=== PATIENT | male | born 1990 | race Caucasian/White ===

== ENCOUNTER 2017-03-22 17:28 | Emergency (ER) | payer BC ==
[~2017-03-22] VITALS: Ht 185.4 cm; Wt 72.6 kg
[~2017-03-22 17:28] MED LIST: atarax PO
--- NOTE | 2017-03-22 20:26 | REP ---
Acute abdominal series series including PA chest and supine upright abdomen: PA chest: Comparison is 08/30/2016. The lung hayes are clear. Cardiac size normal. The lissette, mediastinum, bony thorax are unremarkable. There is no free subdiaphragmatic air. No interval change. Impression: Negative PA chest. Abdomen, supine upright views: There are no comparisons. The bowel gas pattern is normal. No calcifications. Skeletal soft tissue structures otherwise are unremarkable. Impression: Negative supine upright abdomen. Signed by Gus Ridley MD 03/22/2017 08:18 P
[2017-03-22 20:34] LABS: BASO % 0.5 % (0.0-1.0); EOS # 0.1 K/mm3 (0.0-0.50); EOS % 1.1 % (0.0-3.0); LARGE UNSTAINED CELL # 0.2 K/mm3 (0.0-0.4); LARGE UNSTAINED CELL % 1.7 % (0.0-4.0); LYMPH # 2.2 K/mm3 (1.5-6.5); LYMPH % 25.6 % (24.0-44.0); MEAN CORPUSCULAR HEMOGLOBIN 33.3 pg (27.0-33.0); MEAN CORPUSCULAR HGB CONC 33.9 g/dl (32.0-36.5); MEAN CORPUSCULAR VOLUME 98.3 fl (80.0-96.0); MONO # 0.4 K/mm3 (0.0-0.8); MONO % 4.7 % (0.0-5.0); NEUTROPHILS # 5.8 K/mm3 (1.8-7.7); NEUTROPHILS % 66.4 % (36.0-66.0); PLATELET COUNT, AUTOMATED 307 k/mm3 (150-450); RED CELL DISTRIBUTION WIDTH 12.6 % (11.5-14.5); WHITE BLOOD COUNT 8.7 K/mm3 (4.0-10.0)
[2017-03-22 20:53] LABS: ALBUMIN/GLOBULIN RATIO 1.38 (1.00-1.93); ALKALINE PHOSPHATASE 98 U/L (45-117); ALT/SGPT 17 U/L (12-78); ANION GAP 7 MEQ/L (8-16); AST/SGOT 10 U/L (15-37); BILIRUBIN,DIRECT 0.2 MG/DL (0.0-0.2); BILIRUBIN,TOTAL 0.5 MG/DL (0.2-1.0); BLOOD UREA NITROGEN 12 MG/DL (7-18); CALCIUM LEVEL 9.1 MG/DL (8.5-10.1); CARBON DIOXIDE LEVEL 29 MEQ/L (21-32); CHLORIDE LEVEL 105 MEQ/L (98-107); CREATININE FOR GFR 1.21 MG/DL (0.70-1.30); GLOMERULAR FILTRATION RATE > 60.0 (>60); GLUCOSE, FASTING 87 MG/DL (70-105); POTASSIUM SERUM 4.4 MEQ/L (3.5-5.1); SODIUM LEVEL 141 MEQ/L (136-145); TOTAL PROTEIN 6.9 GM/DL (6.4-8.2)
[2017-03-22 21:40] VITALS: BP 98/52
--- NOTE | 2017-03-23 08:57 | ECGEPIP ---
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
== END 2017-03-22 21:44 | disposition home or self-care (01) ==
LOC: M ED 18:46
DX: R00.2 Palpitations (principal); F17.200 Nicotine dependence, unspecified, uncomplicated; F11.21 Opioid dependence, in remission

== ENCOUNTER 2018-07-16 17:30 | Emergency (ER) | payer BC | END 2018-07-16 18:05 | disposition home or self-care (01) | LOC: M ED 17:30 | DX: Z53.21 Procedure and treatment not carried out due to patient leaving prior to being seen by health care provider (principal) | CPT/HCPCS: 99281 ==

== ENCOUNTER 2019-01-12 22:48 | Emergency (ER) | payer BC, SELFPAY ==
[~2019-01-12] VITALS: Ht 185.4 cm; Wt 75.0 kg
[2019-01-13 01:03] LABS: ABG HCO3 22.1 MEQ/L (22.0-26.0); ABG O2 SATURATION 98.7 % (95.0-99.0); ABG PARTIAL PRESSURE CO2 36.2 mmHg (35.0-45.0); ABG PARTIAL PRESSURE O2 140.6 mmHg (75.0-100.0); ABG STANDARD HCO3 22.9 MEQ/L (22.0-26.0); ABG TOTAL CO2 23.2 MEQ/L (22.0-29.0); ABG pH (ARTERIAL) 7.404 UNITS (7.350-7.450)
[2019-01-13 01:10] VITALS: BP 106/79
[2019-01-13] MEDS ORDERED: KETOROLAC 60 MG/2 ML VIAL (J1885) IM ONE (01:15)
--- NOTE | 2019-01-13 07:30 | ECGEPIP ---
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
--- NOTE | 2019-01-13 11:00 | REP ---
CHEST, TWO VIEWS: There is no evidence of acute infiltrate. No pleural effusion is seen. The heart is normal in size. The mediastinal silhouette is unremarkable. The visualized osseous structures are intact. IMPRESSION: No acute pulmonary disease. Electronically Signed by Gus Archer MD 01/13/2019 05:43 P
== END 2019-01-13 01:24 | disposition home or self-care (01) ==
LOC: M ED 22:48
DX: R07.89 Other chest pain (principal); R00.2 Palpitations; F10.10 Alcohol abuse, uncomplicated; F41.9 Anxiety disorder, unspecified; Z88.0 Allergy status to penicillin; F17.210 Nicotine dependence, cigarettes, uncomplicated

== ENCOUNTER 2023-01-14 12:51 | Emergency (ER) | payer OTHER, SELFPAY ==
[~2023-01-14] VITALS: Ht 185.4 cm; Wt 73.0 kg
[2023-01-14] MEDS ORDERED: DOXY-443 PO (13:59)
[2023-01-14] MEDS ORDERED: PROA1AER2 INH (13:59)
[2023-01-14] MEDS ORDERED: MUCI1TAB16 PO (14:01)
[2023-01-14 14:23] VITALS: BP 106/54
== END 2023-01-14 14:26 | disposition home or self-care (01) ==
LOC: M ED 12:51
DX: J01.00 Acute maxillary sinusitis, unspecified (principal); R06.02 Shortness of breath; F17.200 Nicotine dependence, unspecified, uncomplicated; Z88.0 Allergy status to penicillin; Z79.52 Long term (current) use of systemic steroids; Z79.899 Other long term (current) drug therapy

== ENCOUNTER 2023-02-19 18:41 | Emergency (ER) | payer OTHER ==
[~2023-02-19] VITALS: Ht 188 cm; Wt 70.2 kg
[~2023-02-19 18:41] MED LIST changes: +DOXY-443 PO; +MUCI1TAB16 PO; +PROA1AER2 INH
[2023-02-19 19:16] LABS: APPEARANCE, URINE CLEAR (CLEAR); BACTERIA, URINE AUTO NEGATIVE (NEGATIVE); BILIRUBIN, URINE AUTO NEGATIVE (NEGATIVE); BLOOD, URINE BLOOD NEGATIVE (NEGATIVE); COLOR, URINE YELLOW (YELLOW); GLUCOSE, URINE (UA) AUTO NEGATIVE (NEGATIVE); KETONE, URINE AUTO NEGATIVE (NEGATIVE); LEUKOCYTE ESTERASE, URINE AUTO NEGATIVE (NEGATIVE); NITRITE, URINE AUTO NEGATIVE (NEGATIVE); PROTEIN, URINE AUTO NEGATIVE (NEGATIVE); RBC, URINE AUTO 0 /HPF (0-3); SPECIFIC GRAVITY URINE AUTO 1.009 (1.002-1.035); SQUAMOUS EPITHELIAL CELL UR AU 0 /HPF (0-6); UROBILINOGEN, URINE AUTO 0.2 mg/dL (0.0-2.0); WBC, URINE AUTO 0 /HPF (0-3)
[2023-02-19 20:34] LABS: GC DNA AMPLIFICATION NEGATIVE (NEGATIVE)
[2023-02-19 20:57] VITALS: BP 128/60
[2023-02-19] MEDS ORDERED: cefTRIAXone 500MG VIAL IM ONE (21:00)
[2023-02-19] MEDS ORDERED: LIDOCAINE 1% SDV 5ML VIAL DILUENT ONE (21:00)
[2023-02-19] MEDS ORDERED: LevoFLOXacin 500 MG TABLET PO ONE (21:00)
[2023-02-19] MEDS ORDERED: IBUP-1022 PO (21:08)
[2023-02-19] MEDS ORDERED: LEVO1TAB39 PO (21:08)
== END 2023-02-19 21:19 | disposition home or self-care (01) ==
LOC: M ED 18:41
DX: N45.2 Orchitis (principal); Z79.2 Long term (current) use of antibiotics; Z79.1 Long term (current) use of non-steroidal anti-inflammatories (NSAID); Z88.0 Allergy status to penicillin
CPT/HCPCS: 76870; 81001; 87810; 87850; 93976; 96372; 99283; J0696

== ENCOUNTER 2023-03-09 12:50 | Emergency (ER) | payer OTHER ==
[~2023-03-09] VITALS: Ht 185.4 cm; Wt 69.3 kg
[~2023-03-09 12:50] MED LIST changes: +IBUP-1022 PO; +LEVO1TAB39 PO
[2023-03-09] MEDS ORDERED: NAPROXEN 250 MG TAB PO ONE (15:15)
[2023-03-09] MEDS ORDERED: CLINDAMYCIN 150MG CAPSULE PO ONE (15:15)
[2023-03-09] MEDS ORDERED: CLEO300C2 PO (15:19)
[2023-03-09] MEDS ORDERED: LIDO15SO PO (15:19)
[2023-03-09 15:28] VITALS: BP 125/72
== END 2023-03-09 15:30 | disposition home or self-care (01) ==
LOC: M ED 12:50
DX: J02.0 Streptococcal pharyngitis (principal); N50.82 Scrotal pain; R21 Rash and other nonspecific skin eruption; Z88.0 Allergy status to penicillin; Z79.899 Other long term (current) drug therapy

== ENCOUNTER 2023-03-10 02:57 | Emergency (ER) | payer OTHER ==
[~2023-03-10] VITALS: Ht 185.4 cm; Wt 69.9 kg
[2023-03-10 02:57] VITALS: BP 116/67
[~2023-03-10 02:57] MED LIST changes: +CLEO300C2 PO; +LIDO15SO PO
== END 2023-03-10 04:53 | disposition left against medical advice (07) ==
LOC: M ED 02:57
DX: Z53.21 Procedure and treatment not carried out due to patient leaving prior to being seen by health care provider (principal)

== ENCOUNTER 2023-03-11 10:09 | Emergency (ER) | payer OTHER ==
[~2023-03-11] VITALS: Ht 185.4 cm; Wt 68.8 kg
[2023-03-11 10:11] VITALS: BP 128/64
== END 2023-03-11 11:27 | disposition home or self-care (01) ==
LOC: M ED 10:09
DX: J02.0 Streptococcal pharyngitis (principal); N50.819 Testicular pain, unspecified; R21 Rash and other nonspecific skin eruption; F17.200 Nicotine dependence, unspecified, uncomplicated; F90.9 Attention-deficit hyperactivity disorder, unspecified type; Z88.0 Allergy status to penicillin; Z79.2 Long term (current) use of antibiotics; Z79.899 Other long term (current) drug therapy

== ENCOUNTER 2023-04-03 19:46 | Emergency (ER) | payer OTHER ==
[~2023-04-03] VITALS: Ht 185.4 cm; Wt 70.0 kg
[2023-04-03 19:47] VITALS: BP 116/71; TEMP 98.2; O2SAT 100
== END 2023-04-04 03:22 | disposition left against medical advice (07) ==
LOC: M ED 19:46
DX: Z53.21 Procedure and treatment not carried out due to patient leaving prior to being seen by health care provider (principal)

== ENCOUNTER 2023-04-24 00:07 | Emergency (ER) | payer OTHER, SELFPAY ==
[~2023-04-24] VITALS: Ht 188 cm; Wt 70.9 kg
[2023-04-24 03:16] LABS: BASO # 0.1 10^3/uL (0.0-0.2); EOS # 0.2 10^3/uL (0.0-0.5); EOS % 2.6 % (0.0-3.0); HEMATOCRIT 41.2 % (42.0-52.0); HEMOGLOBIN 13.9 g/dl (13.5-17.5); LYMPH # 3.5 10^3/uL (1.5-5.0); LYMPH % 55.5 % (24.0-44.0); MEAN CORPUSCULAR HGB CONC 33.7 g/dl (32.0-36.5); MEAN CORPUSCULAR VOLUME 94.7 fl (80.0-96.0); MONO # 0.6 10^3/uL (0.0-0.8); MONO % 9.3 % (2.0-8.0); NEUTROPHILS % 31.6 % (36.0-66.0); PLATELET COUNT, AUTOMATED 232 10^3/uL (150-450); RED BLOOD COUNT 4.35 10^6/uL (4.30-6.10); WHITE BLOOD COUNT 6.3 10^3/uL (4.0-10.0)
[2023-04-24 03:40] LABS: ALBUMIN 3.9 G/DL (3.2-5.2); ALKALINE PHOSPHATASE 87 U/L (46-116); ALT/SGPT 14 U/L (7.0-40); AST/SGOT < 8 U/L (<34); BILIRUBIN,DIRECT 0.3 MG/DL (<0.4); BILIRUBIN,TOTAL 0.9 MG/DL (0.3-1.2); BLOOD UREA NITROGEN 13 MG/DL (9-23); CALCIUM LEVEL 9.4 MG/DL (8.5-10.1); CARBON DIOXIDE LEVEL 30 MMOL/L (20-31); CHLORIDE LEVEL 105 MMOL/L (98-107); CREATININE FOR GFR 0.94 MG/DL (0.70-1.30); GLOMERULAR FILTRATION RATE > 60.0 (>60); GLUCOSE, FASTING 89 MG/DL (60-100); SODIUM LEVEL 139 MMOL/L (136-145); TOTAL PROTEIN 6.3 G/DL (5.7-8.2)
[2023-04-24 04:28] LABS: HIV 1&2 SCREEN NEGATIVE (NEGATIVE)
[2023-04-24 04:45] LABS: GC DNA AMPLIFICATION NEGATIVE (NEGATIVE)
[2023-04-24 05:20] VITALS: BP 110/68; TEMP 98.3; O2SAT 98
== END 2023-04-24 05:21 | disposition home or self-care (01) ==
LOC: M ED 00:07
DX: R21 Rash and other nonspecific skin eruption (principal); F90.9 Attention-deficit hyperactivity disorder, unspecified type; F41.9 Anxiety disorder, unspecified; Z88.0 Allergy status to penicillin

== ENCOUNTER 2023-08-20 19:52 | Emergency (ER) | payer SELFPAY ==
[~2023-08-20] VITALS: Ht 188 cm; Wt 66.8 kg
[2023-08-20 19:52] VITALS: BP 131/78; TEMP 98.3; O2SAT 99
== END 2023-08-20 23:26 | disposition home or self-care (01) ==
LOC: M ED 19:52
DX: R13.10 Dysphagia, unspecified (principal)

== ENCOUNTER → 2024-02-21 | Outpatient (CLI) | payer OTHER ==
[~2024-02-21] MED LIST changes: +E-Z-GAS II EFFERVESCENT PACKET (SODIUM BICARB./CITRIC ACID/SIMETHICONE) As Ordered ONE; +E-Z-HD 98% w/w 340GM SUSP BTL As Ordered ONE; +E-Z-PAQUE 96% w/w SUSP 176GM BTL As Ordered ONE; -LIDO15SO PO; +LIDO15SO8 PO; +OMEP40CA5 PO
== END ==
LOC: M RAD 10:21
PROVIDERS: ATTEND Surgery
DX: R13.10 Dysphagia, unspecified (principal)

== ENCOUNTER 2024-02-29 10:41 | Day surgery (SDC) | payer OTHER ==
[~2024-02-29] VITALS: Ht 185.4 cm; Wt 65.8 kg
[~2024-02-29 10:41] MED LIST changes: +DOXY-323 PO; -DOXY-443 PO; -E-Z-GAS II EFFERVESCENT PACKET (SODIUM BICARB./CITRIC ACID/SIMETHICONE) As Ordered ONE; -E-Z-HD 98% w/w 340GM SUSP BTL As Ordered ONE; -E-Z-PAQUE 96% w/w SUSP 176GM BTL As Ordered ONE
[2024-02-29] MEDS: NS 1,000 ML IV ONE (11:05)
[2024-02-29] MEDS ORDERED: propofoL 500 MG/50 ML VIAL As Ordered ONE (12:39)
[2024-02-29 12:53] VITALS: BP 93/50; O2SAT 99
== END 2024-02-29 13:09 | disposition home or self-care (01) ==
LOC: M OPP 10:41
PROVIDERS: ATTEND Surgery
DX: R13.10 Dysphagia, unspecified (principal); K21.9 Gastro-esophageal reflux disease without esophagitis; Z79.899 Other long term (current) drug therapy; Z88.0 Allergy status to penicillin

== ENCOUNTER → 2024-03-19 | Outpatient (CLI) | payer OTHER ==
[~2024-03-19] MED LIST changes: +BARIUM SULFATE 700 MG TABLET (E-Z-DISK) As Ordered ONE; +E-Z-GAS II EFFERVESCENT PACKET (SODIUM BICARB./CITRIC ACID/SIMETHICONE) As Ordered ONE; +E-Z-HD 98% w/w 340GM SUSP BTL As Ordered ONE; +E-Z-PAQUE 96% w/w SUSP 176GM BTL As Ordered ONE; +VARIBAR NECTAR 40% w/v 240ML SUSP BTL As Ordered ONE; +VARIBAR PUDDING 40% w/v 230ML TUBE As Ordered ONE
== END ==
LOC: M RAD 08:58
PROVIDERS: ATTEND Surgery
DX: R13.10 Dysphagia, unspecified (principal)